=== PATIENT | male | born 1990 | race Caucasian/White ===

== ENCOUNTER 2019-07-25 17:41 | Outpatient (REF) | payer MEDICAID, SELFPAY ==
[2019-08-01 11:02] LABS: Helicobacter pylori Ag, Feces Negative (Negative)
== END 2019-07-25 18:01 ==
LOC: LBN 17:41
PROVIDERS: PCP Nurse Practitioner Adult Health; Visit Provider Nurse Practitioner Adult Health
DX: R11.0 Nausea (principal); K58.9 Irritable bowel syndrome, unspecified; R19.4 Change in bowel habit; R53.83 Other fatigue; E55.9 Vitamin D deficiency, unspecified
CPT/HCPCS: 87338; 83630; 87177; 87324

== ENCOUNTER 2019-08-13 08:41 | Outpatient (REF) | payer MEDICAID, SELFPAY ==
[2019-08-13 19:26] LABS: Abs Immature Grans 0.02 k/cumm (0.0-0.09); Absolute Basophil Count 0.04 k/cumm (0.0-0.2); Absolute Eosinophil Count 0.83 k/cumm (0.0-0.7); Absolute Lymphocyte Count 2.45 k/cumm (1.2-3.4); Absolute Monocyte Count 0.62 k/cumm (0.11-0.7); Absolute Neutrophil Count 5.51 k/cumm (1.2-6.7); Basophils % 0.4; Eosinophils % 8.8; HGB 17.1 g/dL (13.5-17.5); Immature Grans % 0.2 %; Lymphocytes % 25.9; Mean Corp. HGB Concentration 35.6 g/dL (32.0-36.0); Mean Corpuscular Hemoglobin 32.1 pg (27.0-33.0); Mean Corpuscular Volume 90.1 fL (80-95); Mean Platelet Volume 13.4 fL (8.0-11.0); Monocytes % 6.5; Neutrophils % 58.2; Platelet Count 145 x1000/uL (130-400); RBC 5.33 m/cumm (4.50-6.00); White Blood Cell Count 9.47 k/cumm (4.4-10.8)
[2019-08-13 20:02] LABS: TSH (W/Ref FT4) 1.59 uIU/mL (0.36-3.74)
[2019-08-13 20:04] LABS: ALT 28 U/L (16-63); AST 16 U/L (15-37); Albumin 4.3 g/dL (3.4-5.0); Alkaline Phosphatase 91 U/L (46-116); Anion Gap 9.7 mmol/L (3-11); BUN 18 mg/dL (7-18); Bilirubin, Total 0.4 mg/dL (0.2-1.0); CO2 27.3 mmol/L (21.0-32.0); CREATININE 0.98 mg/dL (0.70-1.30); Calcium 9.1 mg/dL (8.5-10.1); Chloride 102 mmol/L (98-107); Glucose 124 mg/dL (74-106); Potassium 3.5 mmol/L (3.5-5.1); Sodium 139 mmol/L (136-145); Total Protein 7.1 g/dL (6.4-8.2)
[2019-08-13 20:58] LABS: ESR 4 mm/hr (0-15)
[2019-08-15 10:42] LABS: Hepatitis C Ab w Rflx HCV PCR Negative (Negative)
[2019-08-15 12:37] LABS: Syphilis Serology (RPR) Negative (Negative)
[2019-08-21 13:59] LABS: IgA 142 mg/dL (85-499); Tissue Transglutaminase IgA <1.2 U/mL (<4.0)
== END 2019-08-13 09:01 ==
LOC: LBO 08:41
PROVIDERS: PCP Nurse Practitioner Adult Health; Visit Provider Nurse Practitioner Adult Health
DX: E55.9 Vitamin D deficiency, unspecified (principal); F32.9 Major depressive disorder, single episode, unspecified; F41.9 Anxiety disorder, unspecified; G43.909 Migraine, unspecified, not intractable, without status migrainosus; K58.9 Irritable bowel syndrome, unspecified; R11.0 Nausea
CPT/HCPCS: 80053; 82306; 82784; 83516; 85652; 86803; 84443; 85025; 86592

== ENCOUNTER 2019-09-03 12:07 | Outpatient (CLI) | payer MEDICAID, SELFPAY ==
[2019-09-04 02:32] LABS: COVID-19 RT-PCR UVMMC Result Negative (Negative)
== END 2019-09-03 12:27 ==
PROVIDERS: Internal Medicine; PCP Nurse Practitioner Adult Health; Visit Provider Nurse Practitioner Adult Health
DX: R05 Cough (principal); R50.9 Fever, unspecified
CPT/HCPCS: U0003

== ENCOUNTER 2019-09-10 19:22 | Outpatient (REF) | payer MEDICAID, SELFPAY | END 2019-09-10 19:42 | LOC: LBN 19:22 | PROVIDERS: PCP Nurse Practitioner Adult Health; Visit Provider Nurse Practitioner Adult Health | DX: R31.29 Other microscopic hematuria (principal) | CPT/HCPCS: 87086 ==

== ENCOUNTER 2019-11-19 16:12 | Outpatient (REF) | payer MEDICAID, SELFPAY ==
[2019-11-19 20:49] LABS: Bilirubin Negative (Negative); Blood Trace-intact (Negative); Clarity Clear (Clear); Glucose Negative (Negative); Ketones Negative (Negative); Leukocyte Esterase Negative (Negative); Nitrite Negative (Negative); Specific Gravity 1.025 (1.005-1.025); Urobilinogen 0.2 EU/dL (Up TO 0.2); pH 5.5 (5-8)
[2019-11-19 20:56] LABS: Hemoglobin A1C 5.2 % (3.8-5.6)
[2019-11-19 21:02] LABS: Bacteria Negative HPF (Negative); C & S Indicated? No; Casts Negative LPF (Negative); Crystals Few Calcium Oxalate HPF (Negative); Epithelial Cells Negative HPF (Negative); Mucus Negative (Negative); Other Cells Negative (Negative); RBC 0-2 HPF (0-2); WBC 0-2 HPF (0-5)
[2019-11-19 21:16] LABS: Calculated LDL 158 mg/dL (<100); Cholesterol 267 mg/dL (<200); HDL Cholesterol 37 mg/dL (40-60); Triglyceride 363 mg/dL (<150); Vitamin B12 392 pg/mL (193-986)
[2019-11-21 13:54] LABS: Albumin 67.8 % (55.8-66.1); Total Protein 7.3 g/dL (6.3-8.2)
== END 2019-11-19 16:32 ==
LOC: LBO 16:12
PROVIDERS: PCP Nurse Practitioner Adult Health; Visit Provider Nurse Practitioner Adult Health
DX: G62.9 Polyneuropathy, unspecified (principal); R31.29 Other microscopic hematuria
CPT/HCPCS: 80061; 81003; 81015; 82607; 83036; 84165

== ENCOUNTER 2019-12-04 02:15 | Outpatient (CLI) | payer MEDICAID, SELFPAY ==
--- NOTE | 2019-12-04 07:00 | DI.RAD_ITS ---
EXAM: XR CHEST 2V PA LATERAL CLINICAL HISTORY: r/o acute process, chronic cough, r05 TECHNIQUE: 2D digital imaging was performed. COMPARISON: No exams were available for comparison FINDINGS: The heart is not enlarged. The lungs are clear and well expanded. No pleural effusion seen. Mediastin al contours appear intact. IMPRESSION: Normal chest RADIATION DOSE DELIVERED: Total DLP
== END 2019-12-04 02:35 ==
PROVIDERS: PCP Nurse Practitioner Adult Health; Visit Provider Nurse Practitioner Adult Health
DX: R05 Cough (principal)
CPT/HCPCS: 71046

== ENCOUNTER 2020-01-19 15:08 | Outpatient (REF) | payer MEDICAID, SELFPAY ==
[2020-01-19 18:19] LABS: HGB 16.7 g/dL (13.5-17.5); MCH 31.3 pg (27.0-33.0); MCHC 34.1 % (32.0-36.0); MCV 91.8 fL (80-95); MPV 12.7 fL (8.0-11.0); Platelet Count 147 10^3/uL (130-400); RBC 5.34 10^6/uL (4.36-5.78); RDW 11.4 % (11.8-14.1); RDW-SD 38.7 fL; WBC 6.12 10^3/uL (4.4-10.8)
[2020-01-19 18:37] LABS: Calculated LDL 181 mg/dL (<100); Cholesterol 252 mg/dL (<200); HDL Cholesterol 44 mg/dL (40-60); Triglyceride 137 mg/dL (<150)
[2020-01-19 19:35] LABS: C-Reactive Protein < 0.05 mg/dL (0.0-0.3)
[2020-01-21 10:37] LABS: HIV-1/2 Ag & Ab Screen Negative (Negative)
[2020-01-21 15:22] LABS: ANA Interpretation Negative (Negative)
== END 2020-01-19 15:28 ==
LOC: LBO 15:08
PROVIDERS: PCP Nurse Practitioner Adult Health; Visit Provider Nurse Practitioner Adult Health
DX: E78.5 Hyperlipidemia, unspecified (principal); R53.83 Other fatigue; G60.9 Hereditary and idiopathic neuropathy, unspecified; Z11.4 Encounter for screening for human immunodeficiency virus [HIV]
CPT/HCPCS: 80061; 85027; 87389; 86038; 86140

== ENCOUNTER 2020-01-30 03:06 | Outpatient (CLI) | payer MEDICAID, SELFPAY ==
--- NOTE | 2020-01-30 08:30 | DI.RAD_ITS ---
EXAM: XR SCAPULA LT CLINICAL HISTORY: r/o acute issue or bony abnormality,PAIN LT SCAPULA,M25.512,M89.8X1. TECHNIQUE: 2D digital imaging was performed. COMPARISON: No exams were available for comparison FINDINGS: BONES: No acute fracture is present. No bony destructive lesion is seen. There is a smoothly more mar ginated contour deformity at the inferior glenoid. This could be congenital or be result of remote t rauma. JOINTS: No dislocation present. Joint spaces are well maintained. There are no significant degenerat eva changes. SOFT TISSUE: Normal. IMPRESSION: No acute abnormality. DATA REPOSITORY: RADIATION DOSE DELIVERED:
--- NOTE | 2020-01-30 08:30 | DI.RAD_ITS ---
EXAM: XR CHEST 2V PA LATERAL CLINICAL HISTORY: INSPIRATORY PAIN,? ACUTE PROCESS,CHEST PAIN ON BREATHING,R07.1 TECHNIQUE: 2D digital imaging was performed. COMPARISON: No exams were available for comparison FINDINGS: MEDIASTINUM: Normal. HEART: Normal. PULMONARY VASCULATURE: Normal. LUNGS: Clear. PLEURAL SPACE: No pleural effusion or pneumothorax. BONE:Normal. IMPRESSION: No acute pulmonary findings. DATA REPOSITORY: RADIATION DOSE DELIVERED:
--- NOTE | 2020-01-30 08:30 | DI.RAD_ITS ---
EXAM: XR SHOULDER LT COMPLETE 2+V CLINICAL HISTORY: r/o bony abnormality/acute process,LT SHOULDER PAIN,M25.512,M89.8X1. TECHNIQUE: 2D digital imaging was performed. COMPARISON: CR XR CHEST 2V PA LATERAL from 12/04/2019 CR XR SCAPULA LT from 01/30/2020 FINDINGS: BONES: No acute fracture is present. No bony destructive lesion is seen. Slight deformity of the inf erior glenoid which does not appear acute and may be the result an old injury. It was present on a p revious chest x-ray. JOINTS: No dislocation present. SOFT TISSUE: Normal. IMPRESSION: Unremarkable radiographs of the left shoulder. DATA REPOSITORY: RADIATION DOSE DELIVERED:
== END 2020-01-30 03:26 ==
PROVIDERS: Visit Provider Nurse Practitioner Adult Health
DX: M25.512 Pain in left shoulder (principal); M89.8X1 Other specified disorders of bone, shoulder; R07.1 Chest pain on breathing; D49.1 Neoplasm of unspecified behavior of respiratory system
CPT/HCPCS: 70486; 71046; 73010; 73030

== ENCOUNTER 2020-04-16 14:49 | Outpatient (REF) | payer MEDICAID, SELFPAY ==
[2020-04-16 20:38] LABS: ALT 24 U/L (16-63); AST 10 U/L (15-37); Albumin 4.4 g/dL (3.4-5.0); Alkaline Phosphatase 84 U/L (46-116); Anion Gap 10.3 mmol/L (3-11); BUN 19 mg/dL (7-18); Bilirubin, Total 0.6 mg/dL (0.2-1.0); CO2 25.7 mmol/L (21.0-32.0); CREATININE 0.93 mg/dL (0.70-1.30); Chloride 103 mmol/L (98-107); Glucose 103 mg/dL (74-106); Potassium 3.9 mmol/L (3.5-5.1); Sodium 139 mmol/L (136-145); Total Protein 7.5 g/dL (6.4-8.2)
[2020-04-19 11:13] LABS: Lyme Ab w Rflx to Lyme Confirm Negative (Negative)
== END 2020-04-16 15:09 ==
LOC: NCHCN 14:49
PROVIDERS: PCP Family Medicine; Visit Provider Family Medicine
DX: R42 Dizziness and giddiness (principal); G60.9 Hereditary and idiopathic neuropathy, unspecified
CPT/HCPCS: 80053; 82533; 87798; 85025; 86618

== ENCOUNTER 2020-06-02 21:11 | Outpatient (REF) | payer MEDICAID, SELFPAY ==
[2020-06-04 14:48] LABS: COVID-19 RT-PCR UVMMC Result Negative (Negative)
== END 2020-06-02 21:12 | disposition home or self-care (01) ==
LOC: LBN 21:11
PROVIDERS: PCP Family Medicine; Visit Provider Nurse Practitioner Family
DX: Z20.822 Contact with and (suspected) exposure to COVID-19 (principal); R09.81 Nasal congestion
CPT/HCPCS: U0003

== ENCOUNTER 2020-09-22 08:15 | Outpatient (CLI) | payer MEDICAID, SELFPAY ==
[2020-09-22 14:55] LABS: Folate 9.7 ng/mL (8.6-20.0); Vitamin B12 372 pg/mL (193-986)
[2020-09-24 13:15] LABS: Copper, Serum 0.82 mcg/mL (0.75-1.45)
[2020-09-24 13:21] LABS: Zinc, Serum 0.96 mcg/mL (0.66-1.10)
[2020-09-27 10:50] LABS: Pyridoxal 5-Phosphate (PLP), P 7 mcg/L (5-50)
[2020-09-28 11:32] LABS: Methylmalonic Acid 0.12 nmol/mL (<=0.40)
== END 2020-09-22 08:16 | disposition home or self-care (01) ==
PROVIDERS: PCP Family Medicine
DX: G62.9 Polyneuropathy, unspecified (principal); R20.2 Paresthesia of skin
CPT/HCPCS: 36415; 80186; 82525; 82607; 82746; 84207; 84630

== ENCOUNTER 2022-07-13 10:30 | Outpatient (RCR) | payer MEDICAID, SELFPAY ==
--- NOTE | 2022-07-13 10:45 | HOLTER_ITS ---
APPROVED REPORT Conclusion This is a 48-hour Holter monitor Rhythm throughout was sinus with an average heart rate of 77. Minimum was 54, maximum 117 There were no atrial or ventricular dysrhythmias There was no high-grade AV block, no pauses greater than 3 seconds Patient's symptoms were reported which did not correspond to any abnormality
== END 2022-08-06 23:59 | disposition home or self-care (01) ==
LOC: CARDOPNVT 10:30
PROVIDERS: PCP Nurse Practitioner; Visit Provider Nurse Practitioner
DX: R07.9 Chest pain, unspecified (principal); R00.2 Palpitations
CPT/HCPCS: 93225; 93226

== ENCOUNTER 2022-08-09 10:03 | Outpatient (REF) | payer MEDICAID, SELFPAY ==
[2022-08-11 14:47] LABS: Chlamydia Result Negative (Negative); GC Result Negative (Negative)
== END 2022-08-09 10:04 | disposition home or self-care (01) ==
LOC: LBN 10:03
PROVIDERS: PCP Nurse Practitioner; Referring Provider Nurse Practitioner; Visit Provider Nurse Practitioner
DX: R30.0 Dysuria (principal)
CPT/HCPCS: 87491; 87591; 87086